=== PATIENT | male | born 1950 | race Caucasian/White ===

== ENCOUNTER 2020-03-27 06:01 | Emergency (ER) | payer OTHER ==
--- OUTSIDE RECORDS SUMMARY | 2020-03-27 06:04 | XMS REPORT | Clinical Summary ---
:1950 Author Organization [facility] Address [address] [place] [address] Care Team Providers Name Role Phone Chhaya Mckinley NP Primary Care Provider Allergies Active Allergy Reactions Severity Noted Date Comments Enoxaparin Rash Low 06/08/2016 Slight rashes o n the stomach for prolonged use GENERIC LOVENOX GIVES PATIENT BLISTERS AND RASHES Metformin Rash Low 06/08/2016 Medications Medication Sig Dispensed Refills Start End Date Status Date warfarin Take 2.5 mg by 0 Activ e (COUMADIN) 5 MG mouth every tablet evening. aspirin 81 mg Chew 81 mg 0 Activ e chewable tablet daily. PATIENT TOOK HIS ASPIRIN YESTERDAY INSTRUCTED BY HIS [employer] lisinopril Take 5 mg by 0 Active (PRINIVIL,ZESTRIL) mouth nightly. 5 mg tablet pantoprazole Take 40 mg by 0 Act rudy (PROTONIX) 40 MG mouth daily. EC tablet tamsulosin Take 0.4 mg by 0 Acti ve (FLOMAX) 0.4 mg mouth daily with capsule dinner. pantoprazole TAKE ONE TABLET 30 tablet 3 A ctive (PROTONIX) 40 MG BY MOUTH ONE 9 EC tablet TIME DAILY cyanocobalamin, Place 1,000 mcg 30 each 11 06/17/20 Active vitamin B-12, under the tongue 9 20 (VITAMIN B-12) daily. 1,000 mcg tablet, sublingualIndicati ons: S/P bariatric surgery, Intestinal malabsorption, unspecified type, Vitamin deficiency metoprolol TAKE ONE TABLET 30 tablet 0 Act rudy succinate XL BY MOUTH ONE 0 (TOPROL-XL) 25 mg TIME DAILY 24 hr tablet cyanocobalamin Take 1 tablet 30 tablet 11 06/06/20 E xpired (cyanocobalamin) (1,000 mcg 8 19 1000 MCG total) by mouth tabletIndications: daily. Class 3 severe obesity due to excess calories with serious comorbidity and body mass index (BMI) of 40.0 to 44.9 in adult ([facility]), Essential hypertension, Type 2 diabetes mellitus with complication, with long-term current use of insulin ([facility]), Coronary artery disease involving [place] heart with angina pectoris, unspecified vessel or lesion type ([facility]), Post-operative state, Bariatric surgery status, Intestinal malabsorption, unspecified type pantoprazole Take 1 tablet 30 tablet 4 05/26/20 Dis continued (PROTONIX) 40 MG (40 mg total) by 9 19 (Reorder) EC tablet mouth daily for 30 days. metoprolol TAKE ONE TABLET 30 tablet 0 04/21/20 Dis continued succinate XL BY MOUTH ONE 9 19 (Reo rder) (TOPROL-XL) 25 mg TIME DAILY 24 hr tablet clopidogrel TAKE ONE TABLET 30 tablet 0 04/23/20 Di scontinued (PLAVIX) 75 mg BY MOUTH ONE 9 19 (R eorder) tablet TIME DAILY metoprolol TAKE ONE TABLET 30 tablet 0 04/22/20 Dis continued succinate XL BY MOUTH ONE 9 19 (TOPROL-XL) 25 mg TIME DAILY 24 hr tablet clopidogrel TAKE ONE TABLET 30 tablet 0 05/18/20 Di scontinued (PLAVIX) 75 mg BY MOUTH ONE 9 19 (R eorder) tablet TIME DAILY metoprolol TAKE ONE TABLET 30 tablet 0 06/16/20 Dis continued succinate XL BY MOUTH ONE 9 19 (Reo rder) (TOPROL-XL) 25 mg TIME DAILY 24 hr tablet clopidogrel TAKE ONE TABLET 30 tablet 0 06/16/20 Di scontinued (PLAVIX) 75 mg BY MOUTH ONE 9 19 (R eorder) tablet TIME DAILY metoprolol TAKE ONE TABLET 30 tablet 0 07/15/19 Dis continued succinate XL BY MOUTH ONE 9 20 (TOPROL-XL) 25 mg TIME DAILY 24 hr tablet clopidogrel TAKE ONE TABLET 30 tablet 0 07/15/19 Di scontinued (PLAVIX) 75 mg BY MOUTH ONE 9 20 tablet TIME DAILY metoprolol TAKE ONE TABLET 30 tablet 0 08/15/19 Dis continued succinate XL BY MOUTH ONE 0 20 (TOPROL-XL) 25 mg TIME DAILY 24 hr tablet clopidogrel TAKE ONE TABLET 30 tablet 0 08/21/19 Di scontinued (PLAVIX) 75 mg BY MOUTH ONE 0 20 tablet TIME DAILY metoprolol TAKE ONE TABLET 30 tablet 0 09/15/19 Dis continued succinate XL BY MOUTH ONE 0 20 (TOPROL-XL) 25 mg TIME DAILY 24 hr tablet clopidogreL TAKE ONE TABLET 30 tablet 0 01/15/20 Di scontinued (PLAVIX) 75 mg BY MOUTH ONE 0 20 tablet TIME DAILY metoprolol TAKE ONE TABLET 30 tablet 0 09/16/19 Dis continued succinate XL BY MOUTH ONE 0 20 (TOPROL-XL) 25 mg TIME DAILY 24 hr tablet metoprolol TAKE ONE TABLET 30 tablet 0 10/13/19 Dis continued succinate XL BY MOUTH ONE 0 20 (TOPROL-XL) 25 mg TIME DAILY 24 hr tablet metoprolol TAKE ONE TABLET 30 tablet 0 11/16/19 Dis continued succinate XL BY MOUTH ONE 0 20 (TOPROL-XL) 25 mg TIME DAILY 24 hr tablet metoprolol TAKE ONE TABLET 30 tablet 0 12/14/19 Dis continued succinate XL BY MOUTH ONE 0 20 (TOPROL-XL) 25 mg TIME DAILY 24 hr tablet metoprolol TAKE ONE TABLET 30 tablet 0 01/08/20 Dis continued succinate XL BY MOUTH ONE 0 20 (TOPROL-XL) 25 mg TIME DAILY 24 hr tablet metoprolol TAKE ONE TABLET 30 tablet 0 02/03/20 Dis continued succinate XL BY MOUTH ONE 0 20 (TOPROL-XL) 25 mg TIME DAILY 24 hr tablet metoprolol TAKE ONE TABLET 30 tablet 0 02/27/20 Dis continued succinate XL BY MOUTH ONE 0 20 (TOPROL-XL) 25 mg TIME DAILY 24 hr tablet metoprolol TAKE ONE TABLET 30 tablet 0 03/26/20 Dis continued succinate XL BY MOUTH ONE 0 20 (TOPROL-XL) 25 mg TIME DAILY 24 hr tablet Active Problems Problem Noted Date Primary osteoarthritis of right hip 10/16/2018 Morbid (severe) obesity due to excess calories 018 Type 2 diabetes mellitus without complication, without long-term current 12/11/2017 use of insulin Essential hypertension 12/11/2017 HLD (hyperlipidemia) 12/11/2017 Thrush of mouth and esophagus 02/25/2017 ELIDIA (acute kidney injury) 02/25/2017 Non-traumatic rhabdomyolysis 02/25/2017 Diabetic hyperosmolar non-ketotic state 02/24/2017 History of myocardial infarction 12/07/2016 Coronary artery disease involving [place] coronary samantha ry of [place] heart 12/07/2016 without angina pectoris Follow up 12/07/2016 Factor V deficiency 06/08/2016 Encounters Date Type Specialty Care Team Description 03/26/2020 Refill Cardiology Stephan Easton MD 03/12/2020 Travel 02/27/2020 Refill Cardiology Stephan Easton MD 02/03/2020 Refill Cardiology Stephan Easton MD 01/15/2020 Office Visit Cardiology Stephan Easton Essential hyper tension (Primary Dx); MD Jaime Type 2 diabetes mellitus without complication, without long-term current use of insulin (HCC); Factor V defici ency (HCC); Coronary artery disease involving [place] coronary artery of [place] heart without angina pectoris 01/15/2020 Transcribe Orders Procedural Stephan Easton Coronary a rtery Cardiology MD Jaime disease involvi ng [place] coronary artery of [place] heart without angina pectoris (Prima ry Dx) 01/15/2020 Travel 01/08/2020 Refill Cardiology Stephan Easton MD 12/15/2019 Hospital Encounter Radiology Abraham Jones MD of right hip 12/15/2019 Travel 12/14/2019 Refill Cardiology Stephan Easton MD 12/13/2019 Refill General Surgery Natalie Lopez PA 12/10/2019 Office Visit Orthopedic Surgery Abraham Jones MD of right hip (P rimary Dx) 12/10/2019 Travel 12/05/2019 Travel 11/16/2019 Refill Cardiology Stephan Easton MD 10/13/2019 Refill Cardiology Stephan Easton MD 09/16/2019 Refill Cardiology Karen Eastonron Med Refkunal Sandoval MD 09/15/2019 Refill Cardiology Stephan Easton Med Refkunal Sandoval MD 08/20/2019 Refill Cardiology Stephan [place]aton Med Poli Sandoval MD 08/13/2019 Refill Cardiology Stephan Eatson Med Refkunal Sandoval MD 07/15/2019 Office Visit General Surgery Guillermo, Jose, Weight loss (Primary Dx); Essential hypertension; Natalie Lopez S/P bariatric s urgery Jose PA 07/15/2019 Refill Cardiology Stephan Easton Med Refkunal Sandoval MD 07/10/2019 Orders Only General Surgery Feliciano, Diabetic hyp erosmolar non- ketotic state (HCC) (Primary Dx); RICARDO Guadarrama Morbid (severe) obesity due to excess calories (HCC); Hyperlipidemia, unspecified hyperlipidemia type; S/P bariatric s urgery; B12 deficiency due to diet 06/18/2019 Orders Only General Surgery Lupe, Daniela, S/P bariatri c surgery (Primary Dx); [employer]ING [employer] Intestinal sekou bsorption, unspecified type; Vitamin deficie ncy 06/18/2019 Orders Only General Surgery Lupe, Daniela, Weight loss (Primary Dx); [employer] Essential hyper tension; S/P bariatric s urgery; Other hyperlipi demia; Type 2 diabetes mellitus without complication, without long-term current use of insulin (HCC); Coronary artery disease involving [place] coronary artery of [place] heart without angina pectoris; Intestinal sekou bsorption, unspecified type; Multiple vitami n deficiency 06/16/2019 Refill Cardiology Karen Eastonron Med Refkunal Sandoval MD 05/26/2019 Refill General Surgery Natalie Lopez PA 05/18/2019 Refill Cardiology Stephan Easton Med Poli Sandoval MD 04/23/2019 Refill Cardiology Stephan Easton Med Poli Sandoval MD 04/22/2019 Office Visit Cardiology Stephan Easton Factor V defici ency (HCC) (Primary Dx); MD Jaime History of myoc ardial infarction; Hyperlipidemia, unspecified hyperlipidemia type; Type 2 diabetes mellitus without complication, without long-term current use of insulin (HCC); Coronary artery disease involving [place] coronary artery of [place] heart without angina pectoris; Essential hyper tension 04/21/2019 Refill Cardiology Stephan Easton Med Poli Sandoval MD after 03/27/2019 Family History Medical History Relation Name Comments Diabetes Father Relation Name Status Comments Father Mother 98 Alive Social History Tobacco Use Types Packs/Day Years Used Date Former Smoker Cigarettes 1 50 Quit: 2016 Smokeless Tobacco: Never Used Alcohol Use Drinks/Week oz/Week Comments No Alcohol Habits Answer Date Recorded How often do you have a drink containing alcohol? Never 06/06/2018 How many drinks containing alcohol do you have on a typical Not asked day when you are drinking? How often do you have six or more drinks on one occasion? No t asked Sex Assigned at Date Recorded Not on file Job Start Date Occupation Industry Not on file Not on file Not on file Travel History Travel Start Travel End No recent travel history available. Last Filed Vital Signs Vital Sign Reading Time Taken Comments Blood Pressure 124/70 01/15/2020 7:01 AM CDT Pulse 56 07/15/2019 9:06 AM DRUG AND ALCOHOL TREATMENT SPECIALIST Temperature 36.5 C (97.7 F) 07/15/2019 9:06 AM DRUG AND ALCOHOL TREATMENT SPECIALIST Respiratory Rate 16 07/15/2019 9:06 AM DRUG AND ALCOHOL TREATMENT SPECIALIST Oxygen Saturation 97% 07/15/2019 9:06 AM DRUG AND ALCOHOL TREATMENT SPECIALIST Inhaled Oxygen Concentration - - Weight 78 kg (172 lb) 01/15/2020 7:01 AM CDT Height 170.2 cm (5' 7") 01/15/2020 7:01 AM CDT Body Mass Index 26.94 01/15/2020 7:01 AM CDT Plan of Treatment Date Type Specialty Care Team Description 07/20/2020 Appointment Procedural Cardiology 07/20/2020 Appointment Procedural Cardiology 07/20/2020 [place] [id number] [facility] [address], [address] [place] [phone] Health Maintenance Due Date Last Done Comments DIABETIC RETINAL EYE EXAM 1950 DIABETIC FOOT EXAM 1958 COLONOSCOPY SCREENING 1998 SHINGLES VACCINES (#1) 1998 65+ PNEUMOCOCCAL VACCINE (1 of 2 - PCV13) 2013 INFLUENZA VACCINE 03/09/2020 Implants Implanted Type Area Statistical Typist Device Shelf Model / Identifier Expiration Serial / Date Lot Drain Wnd Chnl 19fr 4in Rnd Hbls Fl-Flut W/ 4in Tr ocar - [id number] Surgical N/A: N/A [employer] 2231 / Implanted: 06/17/2018 at [facility] (Quantity not on file) Imp lants; PARAS & / Expanders; PARAS Extenders; Surgical Wires Procedures Procedure Name Priority Date/Time Associated Diagnosis Comme nts ECG 12-LEAD Routine 01/15/2020 6:10 Essential hyper tension Results for this AM CDT Type 2 diabetes procedure ar e in mellitus without the results complication, without sectio n. long-term current use of insulin (HCC) Factor V deficiency (HCC) Coronary artery disease involving [place] coronary artery of [place] heart without angina pectoris FL FLUOROSCOPY GUIDED Routine 12/15/2019 11:00 Primary osteoar thritis Results for this NEEDLE PLACEMENT AM CDT of right hip procedure a re in the results section. XR PELVIS 1 OR 2 VW Routine 12/10/2019 2:12 Primary osteoarth ritis Results for this PM CDT of right hip procedure are i n the results section. ESTIMATED GFR Routine 07/03/2019 9:28 Results fo r this AM DRUG AND ALCOHOL TREATMENT SPECIALIST procedure are i n the results section. ZINC LEVEL, SERUM Routine 07/03/2019 9:28 Weight loss Results for this AM DRUG AND ALCOHOL TREATMENT SPECIALIST Essential hypert ension procedure are in S/P bariatric balbuena rgery the results Other hyperlipid emia section. Type 2 diabetes mellitus without complication, without long-term current use of insulin (HCC) Coronary artery disease involving [place] coronary artery of [place] heart without angina pectoris Intestinal malabsorption, unspecified type Multiple vitamin deficiency T3 Routine 07/03/2019 9:28 Weight loss Results for this AM DRUG AND ALCOHOL TREATMENT SPECIALIST Essential hypert ension procedure are in S/P bariatric balbuena rgery the results Other hyperlipid emia section. Type 2 diabetes mellitus without complication, without long-term current use of insulin (HCC) Coronary artery disease involving [place] coronary artery of [place] heart without angina pectoris Intestinal malabsorption, unspecified type Multiple vitamin deficiency COMPREHENSIVE Routine 07/03/2019 9:28 Weight loss Results for this METABOLIC PANEL AM DRUG AND ALCOHOL TREATMENT SPECIALIST Essential hypert ension procedure are in S/P bariatric balbuena rgery the results Other hyperlipid emia section. Type 2 diabetes mellitus without complication, without long-term current use of insulin (HCC) Coronary artery disease involving [place] coronary artery of [place] heart without angina pectoris Intestinal malabsorption, unspecified type Multiple vitamin deficiency LIPID PANEL Routine 07/03/2019 9:28 Weight loss Results for this AM DRUG AND ALCOHOL TREATMENT SPECIALIST Essential hypert ension procedure are in S/P bariatric balbuena rgery the results Other hyperlipid emia section. Type 2 diabetes mellitus without complication, without long-term current use of insulin (HCC) Coronary artery disease involving [place] coronary artery of [place] heart without angina pectoris Intestinal malabsorption, unspecified type Multiple vitamin deficiency TOTAL IRON BINDING Routine 07/03/2019 9:28 Weight loss Results for this CAPACITY AM DRUG AND ALCOHOL TREATMENT SPECIALIST Essential hypert ension procedure are in S/P bariatric balbuena rgery the results Other hyperlipid emia section. Type 2 diabetes mellitus without complication, without long-term current use of insulin (HCC) Coronary artery disease involving [place] coronary artery of [place] heart without angina pectoris Intestinal malabsorption, unspecified type Multiple vitamin deficiency T4, FREE Routine 07/03/2019 9:28 Weight loss Results for this AM DRUG AND ALCOHOL TREATMENT SPECIALIST Essential hypert ension procedure are in S/P bariatric balbuena rgery the results Other hyperlipid emia section. Type 2 diabetes mellitus without complication, without long-term current use of insulin (HCC) Coronary artery disease involving [place] coronary artery of [place] heart without angina pectoris Intestinal malabsorption, unspecified type Multiple vitamin deficiency THYROID STIMULATING Routine 07/03/2019 9:28 Weight loss Results for this HORMONE AM DRUG AND ALCOHOL TREATMENT SPECIALIST Essential hypert ension procedure are in S/P bariatric balbuena rgery the results Other hyperlipid emia section. Type 2 diabetes mellitus without complication, without long-term current use of insulin (HCC) Coronary artery disease involving [place] coronary artery of [place] heart without angina pectoris Intestinal malabsorption, unspecified type Multiple vitamin deficiency HEMOGLOBIN A1C Routine 07/03/2019 9:28 Weight loss Results for this AM DRUG AND ALCOHOL TREATMENT SPECIALIST Essential hypert ension procedure are in S/P bariatric balbuena rgery the results Other hyperlipid emia section. Type 2 diabetes mellitus without complication, without long-term current use of insulin (HCC) Coronary artery disease involving [place] coronary artery of [place] heart without angina pectoris Intestinal malabsorption, unspecified type Multiple vitamin deficiency PARATHYROID HORMONE Routine 07/03/2019 9:28 Weight loss Results for this AM DRUG AND ALCOHOL TREATMENT SPECIALIST Essential hypert ension procedure are in S/P bariatric balbuena rgery the results Other hyperlipid emia section. Type 2 diabetes mellitus without complication, without long-term current use of insulin (HCC) Coronary artery disease involving [place] coronary artery of [place] heart without angina pectoris Intestinal malabsorption, unspecified type Multiple vitamin deficiency HC COMPLETE BLD COUNT Routine 07/03/2019 9:28 Weight lo ss Results for this W/AUTO DIFF AM DRUG AND ALCOHOL TREATMENT SPECIALIST Essential hypert ension procedure are in S/P bariatric balbuena rgery the results Other hyperlipid emia section. Type 2 diabetes mellitus without complication, without long-term current use of insulin (HCC) Coronary artery disease involving [place] coronary artery of [place] heart without angina pectoris Intestinal malabsorption, unspecified type Multiple vitamin deficiency VITAMIN A LEVEL, Routine 07/03/2019 9:28 Weight loss Results for this PLASMA OR SERUM AM DRUG AND ALCOHOL TREATMENT SPECIALIST Essential hypert ension procedure are in S/P bariatric balbuena rgery the results Other hyperlipid emia section. Type 2 diabetes mellitus without complication, without long-term current use of insulin (HCC) Coronary artery disease involving [place] coronary artery of [place] heart without angina pectoris Intestinal malabsorption, unspecified type Multiple vitamin deficiency VITAMIN B12 LEVEL Routine 07/03/2019 9:28 Weight loss Results for this AM DRUG AND ALCOHOL TREATMENT SPECIALIST Essential hypert ension procedure are in S/P bariatric balbuena rgery the results Other hyperlipid emia section. Type 2 diabetes mellitus without complication, without long-term current use of insulin (HCC) Coronary artery disease involving [place] coronary artery of [place] heart without angina pectoris Intestinal malabsorption, unspecified type Multiple vitamin deficiency VITAMIN D 25 HYDROXY Routine 07/03/2019 9:28 Weight los s Results for this LEVEL AM DRUG AND ALCOHOL TREATMENT SPECIALIST Essential hypert ension procedure are in S/P bariatric balbuena rgery the results Other hyperlipid emia section. Type 2 diabetes mellitus without complication, without long-term current use of insulin (HCC) Coronary artery disease involving [place] coronary artery of [place] heart without angina pectoris Intestinal malabsorption, unspecified type Multiple vitamin deficiency COPPER LEVEL, SERUM Routine 07/03/2019 9:28 Weight loss Results for this AM DRUG AND ALCOHOL TREATMENT SPECIALIST Essential hypert ension procedure are in S/P bariatric balbuena rgery the results Other hyperlipid emia section. Type 2 diabetes mellitus without complication, without long-term current use of insulin (HCC) Coronary artery disease involving [place] coronary artery of [place] heart without angina pectoris Intestinal malabsorption, unspecified type Multiple vitamin deficiency FOLATE LEVEL Routine 07/03/2019 9:28 Weight loss Results for this AM DRUG AND ALCOHOL TREATMENT SPECIALIST Essential hypert ension procedure are in S/P bariatric balbuena rgery the results Other hyperlipid emia section. Type 2 diabetes mellitus without complication, without long-term current use of insulin (HCC) Coronary artery disease involving [place] coronary artery of [place] heart without angina pectoris Intestinal malabsorption, unspecified type Multiple vitamin deficiency FERRITIN LEVEL Routine 07/03/2019 9:28 Weight loss Results for this AM DRUG AND ALCOHOL TREATMENT SPECIALIST Essential hypert ension procedure are in S/P bariatric balbuena rgery the results Other hyperlipid emia section. Type 2 diabetes mellitus without complication, without long-term current use of insulin (HCC) Coronary artery disease involving [place] coronary artery of [place] heart without angina pectoris Intestinal malabsorption, unspecified type Multiple vitamin deficiency VITAMIN B1 LEVEL, Routine 07/03/2019 9:28 Weight loss Results for this WHOLE BLOOD AM DRUG AND ALCOHOL TREATMENT SPECIALIST Essential hypert ension procedure are in S/P bariatric balbuena rgery the results Other hyperlipid emia section. Type 2 diabetes mellitus without complication, without long-term current use of insulin (HCC) Coronary artery disease involving [place] coronary artery of [place] heart without angina pectoris Intestinal malabsorption, unspecified type Multiple vitamin deficiency NM MYOCARDIAL Routine 04/22/2019 1:19 Essential hyper tension Results for this PERFUSION STRESS REST PM CDT Factor V deficiency procedure are in 1 DAY ([facility]) the results Coronary artery section. disease involving [place] coronary artery of [place] heart without angina pectoris Hyperlipidemia, unspecified hyperlipidemia type CV STRESS TEST Routine 04/22/2019 1:19 Essential hyper tension Results for this NUCLEAR CARDIO PM CDT Factor V deficiency proced ure are in ([facility]) the results Coronary artery section. disease involving [place] coronary artery of [place] heart without angina pectoris Hyperlipidemia, unspecified hyperlipidemia type RETICULOCYTE COUNT Routine 04/22/2019 11:32 Hereditary coagula tion Results for this AM CDT factor deficiency procedure are in ([facility]) the results section. FERRITIN LEVEL Routine 04/22/2019 11:32 Hereditary coagulation Results for this AM CDT factor deficiency procedure are in ([facility]) the results section. FOLATE RBC (GROUP Routine 04/22/2019 11:32 Hereditary coagulat ion Results for this TEST) AM CDT factor deficiency procedure are in ([facility]) the results section. VITAMIN B12 LEVEL Routine 04/22/2019 11:32 Hereditary coagulat ion Results for this AM CDT factor deficiency procedure are in ([facility]) the results section. LDH Routine 04/22/2019 11:32 Hereditary coagulation R esults for this AM CDT factor deficiency procedure are in ([facility]) the results section. TTE COMPLETE, WO Routine 04/22/2019 10:32 Essential hype rtension Results for this CONTRAST, W DOPPLER AM CDT Factor V deficiency p rocedure are in ([address]) ([facility]) the results Coronary artery section. disease involving [place] coronary artery of [place] heart without angina pectoris Hyperlipidemia, unspecified hyperlipidemia type after 03/27/2019 Results ECG 12 lead (01/15/2020 6:10 AM CDT) Pathologist Sig nature Ventricular rate 54 [facility] Atrial rate 54 [facility] MA interval 202 [facility] QRSD interval 94 [facility] QT interval 466 [facility] QTC interval 441 [facility] P axis 1 47 [facility] QRS axis 1 50 [facility] T wave axis 6 [facility] EKG impression Sinus [facility] bradycardia-Otherwise normal ECG-In automated comparison with ECG of 16-JAN-2019 06:24,-No significant change was found- Specimen Narrative Performed At This result has an attachment that is no t available. Performing Organization Address City/State/Zipcode Phone Number [facility] [address] [place] [address] [place] Fluoroscopy Guided Needle Placement (12/15/2019 11:00 AM CDT) Specimen Narrative Performed At EXAMINATION: [place] FLUOROSCOPY GUIDED NEE DLE PLACEMENT RADIANT CLINICAL HISTORY: M16.11 Unilateral primary osteoart hritis of the right hip COMPARISON: None. ANESTHESIA: Lidocaine local. TOTAL DOSE: 28.3 mGy ref air Kerma FINDINGS: Patient was placed in supine position. Ski n was sterilely prepped and draped. Lidocaine was infiltrated into the soft tissues for local anesthesia. A 22-gauge needle was advanced into the right hip join t under fluoroscopy and 80 mg of DepoMedrol and 8 cc of 0.25% Bupivacaine were infused. Patient tolerated the procedure well with no immediate complication and left the room in stable condition. ESTIMATED BLOOD LOSS: 0 cc. IMPRESSION: Technically successful fluoroscopic guided therapeutic right hip joint injection. Procedure Note Interface, Radiology Results Incoming - 12/15/2019 12:37 PM CDT EXAMINATION: [place] FLUOROSCOPY GUIDED NEEDLE PLACEMENT CLINICAL HISTORY: M16.11 Unilateral michael ok osteoarthritis of the right hip COMPARISON: None. ANESTHESIA: Lidocaine local. TOTAL DOSE: 28.3 mGy ref air Kerma FINDINGS: Patient was placed in supine position. Skin was sterilely prepped and draped. Lidocaine was infiltrated into the soft tissues for local anesthesia. A 22-gauge needle was advanced into the right hip joint under fluoroscopy and 80 mg of DepoMedrol and 8 cc of 0.25% Bupivacaine were infused. Patient tolerated the procedure well wit h no immediate complication and left the room in stable condition. ESTIMATED BLOOD LOSS: 0 cc. IMPRESSION: Technically successful fluor oscopic guided therapeutic right hip joint injection. Performing Organization Address [facility] Phone Number [facility] [address] [place] [address] XR Pelvis 1 Or 2 Vw (12/10/2019 2:12 PM CDT) Specimen Narrative Performed At This result has an attachment that is no t available. 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 There is a large cam lesion. Performing Organization Address [facility] Phone Number [facility] [address] [place] [address] Estimated GFR (07/03/2019 9:28 AM DRUG AND ALCOHOL TREATMENT SPECIALIST) Estimated GFR 89 mL/min/1.73 [facility] Comment: [address] Catergory Units Interpretation HOS PITAL G1 >=90 Normal or high G2 60-89 Mildly decreased G3a 45-59 Mildly to moderately decreas ed G3b 30-44 Moderately to severely decre ased G4 15-29 Severely decreased G5 <15 Kidney failure The eGFR was calculated using the Chronic Kidney Disea se Epidemiology Collaboration (CKD-EPI) equation. Interpretation is based on recommendations of the National Kidney Foundation-Kidney Disease Outcomes Shreyas lity Initiative (NKF-KDOQI) published in 2014. Specimen Plasma specimen Performing Organization Address [facility]/Zipcode Phone Number [facility] DEPARTMENT OF PATHOLOGY [address] [facility] [place] [address] AND GENOMIC MEDICINE [facility] [address] [facility] X [address] [facility] Total iron binding capacity (07/03/2019 9:28 AM DRUG AND ALCOHOL TREATMENT SPECIALIST) Pathologist Sig nature Iron level 147 59 - 158 ug/dL [facility] Iron binding capacity 266 260 - 460 ug/dL [facility] % Saturation 55.3 (H) 20.0 - 40.0 % [facility] Specimen Plasma specimen Performing Organization Address City/[facility]/Zipcode Phone Number [facility] DEPARTMENT OF PATHOLOGY [address] [facility] X [address] AND GENOMIC MEDICINE [facility] [address] [facility] X [address] [facility] Copper level, serum (07/03/2019 9:28 AM DRUG AND ALCOHOL TREATMENT SPECIALIST) Copper 81.0 70.0 - 140.0 [facility] Comment: ug/dL INTERPRETIVE INFORMATION: Copper, Serum or Plasma Elevated results may be due to skin or collection-rela aguila contamination, including the use of a noncertified met al-free collection/transport tube. If contamination concerns e xist due to elevated levels of serum/plasma copper, confirmation w ith a second specimen collected in a certified metal-free tube is r ecommended. Serum copper may be elevated with infection, inflammat ion, stress, and copper supplementation. In females, elevated coppe r may also be caused by oral contraceptives and (concen trations may be elevated up to 3 times normal during the third trim wolf). Test developed and characteristics determined by [facility]. See Compliance Statement B: [facility]/ CS Performed by [facility], [address] [place] [id number] [email or web address], Champ Perry MD, Lab. Director Specimen Blood Performing Organization Address [facility]/Zipcode Phone Number [facility] [address] [place] [address] [facility] [address] [place] [address] Vitamin B1 level, whole blood (07/03/2019 9:28 AM DRUG AND ALCOHOL TREATMENT SPECIALIST) Vitamin B1 126 70 - 180 HM [facility] Comment: nmol/L INTERPRETIVE INFORMATION: Vitamin B1, Whole Blood This assay measures the concentration of thiamine diph osphate (TDP), the primary active form of vitamin B1. Approxim ately 90 percent of vitamin B1 present in whole blood is TDP. T hiamine and thiamine monophosphate, which comprise the remaining 1 0 percent, are not measured. Test developed and characteristics determined by [facility]. See Compliance Statement B: [facility]/ CS Performed by [facility], [address] [place] [address] [email or web address], Champ Perry MD, Lab. Director Specimen Plasma specimen Performing Organization Address [facility]/Zipcode Phone Number [facility] [address] [place] [address] [facility] [address] [place] [address] Zinc level, serum (07/03/2019 9:28 AM DRUG AND ALCOHOL TREATMENT SPECIALIST) Zinc 94.7 60.0 - 120.0 [facility] Comment: ug/dL INTERPRETIVE INFORMATION: Zinc, Serum or Plasma Elevated results may be due to skin or collection-rela aguila contamination, including the use of a noncertified met al-free collection/transport tube. If contamination concerns e xist due to elevated levels of serum/plasma zinc, confirmation wit h a second specimen collected in a certified metal-free tube is r ecommended. Circulating zinc concentrations are dependent on album in status and are depressed with malnutrition. Zinc may also b e lowered with infection, inflammation, stress, oral contracepti ves, and . Zinc may be elevated with zinc supplement ation or fasting. Elevated zinc concentrations may interfere with copper absorption. Test developed and characteristics determined by [facility]. See Compliance Statement B: [facility]/ CS Performed by [facility], [address] [place] [address] [email or web address], Champ Perry MD, Lab. Director Specimen Blood Performing Organization Address [facility]/Zipcode Phone Number [facility] [address] [place] [address] [facility] [address] [place] [address] Vitamin A level, plasma or serum (07/03/2019 9:28 AM DRUG AND ALCOHOL TREATMENT SPECIALIST) Vitamin A (retinol) 0.56 0.30 - 1.20 [facility] mg/L Retinyl palmitate 0.05 0.00 - 0.10 [facility] mg/L Vitamin A Normal [facility] interpretation Comment: Test developed and characteristics determined by [facility]. See Compliance Statement B: [facility]/ CS Performed by [facility], [address] [place] [id number] [email or web address], Champ Perry MD, Lab. Director Specimen Plasma specimen Performing Organization Address City/State/Zipcode Phone Number [facility] [address] [place] [address] [facility] [address] [place] [address] Vitamin D 25 hydroxy level (07/03/2019 9:28 AM DRUG AND ALCOHOL TREATMENT SPECIALIST) Vitamin D, 42.4 30.0 - 150.0 [facility] 25-hydroxy Comment: ng/mL HOSPITAL This assay reports the sum of 25-hydroxy vitamin D3 an d 25-hydroxy vitamin D2. Reference range: 0-17 years: Deficiency: less than 20ng/mL Optimum level: greater than or equal to 20 ng/mL. 18 years and older: Deficiency: less than 20ng/mL Insufficiency: 20-29 ng/mL Optimum Level: 30-80 ng/mL The assay reportable range is 3.4 155.9 ng/mL. Level s higher than 150 ng/mL may be associated with toxicity. If toxicity is clinically suspected and the reported r esult is >155.9 ng/mL,contact lab for alternative methods to obtain a definitive level. If separate quantitation of 25-hydroxy vitamin D3 and 25-hydroxy vitamin D2 is needed, please contact lab for alternative methods. Specimen Blood Performing Organization Address City/[facility]/Zipcode Phone Number [facility] DEPARTMENT OF PATHOLOGY AND [address] [place] [phone] GENOMIC MEDICINE [facility] [address] [place] [address] CBC with platelet and differential (07/03/2019 9:28 AM DRUG AND ALCOHOL TREATMENT SPECIALIST) [facility] WBC 4.9 4.5 - 11.0 k/uL [facility] RBC 4.01 (L) 4.40 - 6.00 [facility] m/uL [facility] HGB 13.8 (L) 14.0 - 18.0 [facility] g/dL [facility] HCT 40.4 (L) 41.0 - 51.0 % [facility] MCV 100.7 (H) 82.0 - 100.0 fL [facility] MCH 34.4 (H) 27.0 - 34.0 pg [facility] MCHC 34.2 31.0 - 37.0 [facility] g/dL [facility] RDW - SD 46.5 37.0 - 55.0 fL [facility] MPV 11.0 6.9 - 11.0 fL [facility] Platelet count 113 (L) 150 - 400 K/uL [facility] Nucleated RBC 0.00 /100 WBC [facility] Neutrophils 67.2 39.0 - 69.0 % [facility] Lymphocytes 25.1 25.0 - 45.0 % [facility] Monocytes 5.9 0.0 - 10.0 % [facility] Eosinophils 0.8 0.0 - 5.0 % [facility] Basophils 0.8 0.0 - 1.0 % [facility] Immature granulocytes 0.2 0.0 - 1.0 % [facility] Specimen Blood Performing Organization Address City/State/Zipcode Phone Number [facility] DEPARTMENT OF PATHOLOGY [address] [place] [address] T3 (07/03/2019 9:28 AM DRUG AND ALCOHOL TREATMENT SPECIALIST) Pathologist Sig nature T3 128 80 - 200 ng/dL [facility] Specimen Plasma specimen Performing Organization Address City/[facility]/Zipcode Phone Number [facility] DEPARTMENT OF PATHOLOGY AND [address] [place] [address] [address] [address] Thyroid stimulating hormone (07/03/2019 9:28 AM DRUG AND ALCOHOL TREATMENT SPECIALIST) Pathologist Sig nature TSH 1.91 0.27 - 4.20 uIU/mL [facility] Specimen Plasma specimen Performing Organization Address City/State/Zipcode Phone Number [facility] DEPARTMENT OF PATHOLOGY [address] [place] [address] X [address] T4, free (07/03/2019 9:28 AM DRUG AND ALCOHOL TREATMENT SPECIALIST) Pathologist Sig nature T4, free 1.0 0.9 - 1.7 ng/dL [facility] Specimen Plasma specimen Performing Organization Address City/[facility]/Zipcode Phone Number [facility] DEPARTMENT OF PATHOLOGY [address] [place] [address], X [address] AND [facility] [id number] [place] [address] [facility] Parathyroid hormone (07/03/2019 9:28 AM DRUG AND ALCOHOL TREATMENT SPECIALIST) Pathologist Sig nature PTH 33 15 - 65 pg/mL [facility] Specimen Blood Performing Organization Address City/[facility]/Zipcode Phone Number [facility] DEPARTMENT OF PATHOLOGY [address] [place] [address] X [phone] AND [facility] [id number] [place] [address] X [address] [facility] Hemoglobin A1c (07/03/2019 9:28 AM DRUG AND ALCOHOL TREATMENT SPECIALIST) Hemoglobin A1C 5.4 4.0 - 5.6 % [facility] Comment: [place] HbA1c cutoffs for diagnosing diabetes: HO SPITAL 4.0% - 5.6% = normal 5.7% - 6.4% = increased risk for diabetes (prediabetes )9 >=6.5% = diabetes9 Goals for glycemic control (ADA 2016) < 7.0% Target for non adults with diabetes. More or less stringent targets may be appropriate for individual patients. <7.5% Target for Children and adolescents with type 1 diabetes. Specimen Blood Performing Organization Address [facility] Phone Number [facility] DEPARTMENT OF PATHOLOGY [address] [place] [address], X [address] [place] [address] [facility] Folate level (07/03/2019 9:28 AM DRUG AND ALCOHOL TREATMENT SPECIALIST) Pathologist Sig [facility] Folate >20.0 4.8 - 24.2 ng/mL [facility] Specimen Serum Performing Organization Address City/[facility]/Zipcode Phone Number [facility] DEPARTMENT OF PATHOLOGY AND [address] [place] [address] [address] [address] Ferritin level (07/03/2019 9:28 AM DRUG AND ALCOHOL TREATMENT SPECIALIST)Only the most recent of2 resultswithin the time period is included. Pathologist Sig [facility] Ferritin level 118 30 - 400 ng/mL [facility] Specimen Plasma specimen Performing Organization Address City/[facility] Phone Number [facility] DEPARTMENT OF PATHOLOGY AND [address] [place], [place] [address] [facility] [address] [place] [address] Vitamin B12 level (07/03/2019 9:28 AM DRUG AND ALCOHOL TREATMENT SPECIALIST)Only the most recent of2 results within the time period is included. Vitamin B12 1,071 (H) 211 - 946 [facility] Comment: pg/mL HOSPITAL Significant overlap exists between normal and deficien cy states. However, most patients with deficiencies will have Ser um B12 <200 pg/mL. Specimen Serum Performing Organization Address City/State/Zipcode Phone Number [facility] DEPARTMENT OF PATHOLOGY AND [address] [place], [place] [address] [facility] [address] [place] [address] Lipid panel (07/03/2019 9:28 AM DRUG AND ALCOHOL TREATMENT SPECIALIST) Cholesterol 149 0 - 199 [place] mg/dL [facility] Triglycerides 87 0 - 149 [place] mg/dL [facility] HDL cholesterol 46 40 - 99,999 [place] mg/dL [facility] LDL cholesterol 105 (H) 0 - 99 mg/dL [facility] Lipid panel See below [place] interpretation Comment: [facility] Total Cholesterol (mg/dL) [facility] <200 Desirable 200-239 Borderline-high >=240 High Triglycerides (mg/dL) <150 Normal 150-199 Borderline-high 200-499 High >=500 Very high HDL Cholesterol (mg/dL) <40 Low (male) <50 Low (female) LDL Cholesterol (mg/dL) <100 Optimal 100-129 Near or above optimal 130-159 Borderline-high 160-189 High >=190 Very high Risk Catergories that modify LDL goals. Risk Catergories LDL goal (mg/d L) CHD and CHD risk equivalent <100 (10-year risk >20%) Multiple (2+) risk factors <130 (10-year risk =<20%) 0-1 risk factors <160 (<10-year risk) Defining levels of lipids in metabolic syndrome Triglycerides >=150 mg/dL HDL Cholesterol Men <40 mg /dL Women <50 mg/ dL Non-HDL cholesterol is a second target for therapy in persons with high triglycerides (>=200 mg/dL) Specimen Plasma specimen Performing Organization Address City/State/Zipcode Phone Number [facility] DEPARTMENT OF PATHOLOGY [address] [facility] X [address] AND GENOMIC [facility] [address] [place] [address] X [address] [facility] Comprehensive metabolic panel (07/03/2019 9:28 AM DRUG AND ALCOHOL TREATMENT SPECIALIST) Pathologist Sig nature Sodium 141 135 - 148 mEq/L [facility] Potassium 4.1 3.5 - 5.0 mEq/L [facility] Chloride 103 98 - 112 mEq/L [facility] CO2 26 24 - 31 mEq/L [facility] Anion gap 12@ANIO 7 - 15 mEq/L [facility] BUN 19 8 - 23 mg/dL [facility] Creatinine 0.82 0.70 - 1.20 [facility] mg/dL [facility] Glucose 105 (H) 65 - 99 mg/dL [facility] Calcium 9.8 8.8 - 10.2 mg/dL [facility] Protein 7.5 6.3 - 8.3 g/dL [facility] Albumin 4.3 3.5 - 5.0 g/dL [facility] A/G ratio 1.3 0.7 - 3.8 [facility] Alkaline phosphatase 72 40 - 129 U/L [facility] AST 17 10 - 50 U/L [facility] ALT 13 5 - 50 U/L [facility] Total bilirubin 0.6 0.2 - 1.2 mg/dL [facility] Specimen Plasma specimen Performing Organization Address City/State/Zipcode Phone Number [facility] DEPARTMENT OF PATHOLOGY [address] [facility] X [address] AND [facility] [address] [facility] X [address] [facility] Cv stress test (04/22/2019 1:19 PM CDT) Resting HR 46 [facility] Resting BP 128 [facility] Peak MET Achieved 1.0 [facility]USE Protocol Name [facility] MUSE Time in Exercise 00:01:00 [facility] MUSE Phase Max Systolic BP 136 [facility] Max Diastolic BP 74 [facility] Max Heart Rate 70 [facility] Max Predicted Heart 150 [facility] M[facility] Rate Target HR Formula (220 - Age)*100% [facility] MUSE Stress Test Waveform interpreted in [facility] MUSE Impression report associated with image study. No interpretation is provided as part of this Stress ECG report.--Electronically Signed By Rustam VALDERRAMA, Stephan Simon (2007), index editor Lyndsay Oglesby ([id number]) on 04/22/2019 9:12:45 AM Target HR 150.00 bpm [facility] MUSE Specimen Narrative Performed At This result has an attachment that is no t available. Performing Organization Address City/[facility] Phone Number [facility] MUSE [address] [place] [address] Nm myocardial perfusion (04/22/2019 1:19 PM CDT) Pathologist Sig nature Target HR 150.00 bpm [facility] Resting HR 46 BPM [facility] Resting BP 128/74 mmHg HM [facility] Percent HR 36.00 % HM [facility] Post Peak HR 54 bpm HM [facility] Post Peak BP 136/74 mmHg [facility] Specimen Narrative Performed At This result has an attachment that is no t available. Abnormal myocardial perfusion: [facility] There is a small defect that is moderate in severit y, located at the mid inferior and basal inferior segment(s) of the left andreea tricle. The defect is non-reversible (fixed). There is no artifact presen t. 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 Defect size = 5% Left ventricular global wall motion is mildly hypok inetic. All segments of left ventricle demonstrated normal wall thickness. LVEF = 39% This study result indicates a low risk of cardiac d eath, or nonfatal infarction, over the ensuing year. This study is in agreement with the prior study was performed on 12/11/2017. Performing Organization Address [facility] Phone Number [facility] [address] [place] [address] Reticulocyte count (04/22/2019 11:32 AM CDT) Pathologist Sig nature Retic %, auto 0.9 0.5 - 2.1 % [facility] Retic absolute, auto 0.0356 0.0220 - 0.1260 [facility] m/uL [facility] Specimen Blood Performing Organization Address City/[facility]/Zipcode Phone Number [facility] DEPARTMENT OF PATHOLOGY [address] [facility] [place] [address] AND [facility] [address] [facility] [place] [address] [facility] LDH (04/22/2019 11:32 AM CDT) Pathologist Sig [facility] LDH 128 87 - 225 U/L [facility] Specimen Plasma specimen Performing Organization Address City/State/Zipcode Phone Number [facility] DEPARTMENT OF PATHOLOGY [address] [facility] [place] [address] AND GENOMIC [facility] [id number] [place] [phone] [place] [address] Folate RBC (group test) (04/22/2019 11:32 AM CDT) Pathologist [facility] RBC folate 1,038 499 - 1,504 ng/mL [facility] ANA Specimen Blood Performing Organization Address City/[facility]/Zipcode Phone Number [facility] DEPARTMENT OF PATHOLOGY AND [address] [place] [address] [phone] [address] Echocardiogram complete w contrast and 3D if needed (04/22/2019 10:32 AM CDT) Pathologist Sig [facility] Ao Root Diameter 3.89 cm [facility] AoV Mean PG 3.92 mmHg [facility] AoV Peak PG 7.42 mmHg [facility] AoV Vmax 1.36 m/s [facility] AoV VTI 0.36 m [facility] BSA Oliva 2.02 m2 [facility] BSA 1.95 m2 [facility] IVS,d 1.05 cm [facility] IVS/LVPW,2D 0.98 HM [facility] Left Atrium Dimension Anterior 3.77 cm [facility] LV,d 5.08 cm [facility] LV EF,2D 64.59 % [facility] LV,s 3.59 cm [facility] LVOT Vmax 0.90 m/s [facility] LVOT VTI 0.22 m [facility] LVPWD,d 1.08 cm [facility] PV Mean Grad 1.60 mmHg [facility] PV Pk Grad 2.93 mmHg [facility] PV VMAX 0.86 m/s [facility] PV VTI 0.22 m [facility] RVSP (TR) 29.43 mmHg [facility] TR Vpeak 2.70 mm/s [facility] MV E A ratio 1.53 [facility] RA pressure 10.00 mmHg HM [facility] TR pk grad 19.43 mmHg HM [facility] PV Vmn 0.60 HM [facility] BMI 28.82 kg/m2 HM [facility] E wave decelartion time 350.91 msec HM [facility] MV Peak A Hao 0.43 m/s HM [facility] MV valve area p 1/2 method 2.16 cm2 HM [facility] MV stenosis pressure 1/2 time 101.76 ms HM [facility] AV LVOT peak gradient 3.24 mmHg HM [facility] RVSP 29.43 mmHg HM [facility] Ao Root Diameter 3.89 cm HM [facility] LV SYS VOL 54.23 ml HM [facility] LV TAYLOR VOL 122.72 ml HM [facility] LA area s A4C 27.54 cm2 HM [facility] LV SI Teich 2D 35.09 ml/m2 HM [facility] LV SV Teich 2D 68.48 ml HM [facility] LV Vol s Teich PSAX 54.23 ml HM [facility] BSA Haycock 2.01 m2 HM [facility] AoV Vmn 0.94 HM [facility] LV FS Teich 2D 29.25 HM [facility] MV AE ratio 0.65 HM [facility] LV FS Cube 2D 29.25 HM [facility] LVOT Vmn 0.62 HM [facility] Pt Size 170.18 HM [facility] Pt Wt 83.46 HM [facility] LA A_P score P 1.44 HM [facility] LVOT mean grad 1.75 mmHg HM [facility] LV SI Cube 2D 43.40 ml/m2 HM [facility] LV SV Cube 2D 84.70 ml HM [facility] LV vol d cube 2D 131.14 ml HM [facility] LV vol s cube 2D 46.44 ml HM [facility] MV Decel slope 1.87 m/s2 HM [facility] LA Vol MOD A4C 88.90 ml HM [facility] Velocity Ratio (V1/V2) 0.66 m/s HM [facility] EF 55.81 % HM [facility] LV Mass 203.00 (g) HM [facility] LA volume 81.00 cm3 HM [facility] TDI SEPTAL e' 1.2 HM [facility] LA Volume Index 41.54 mL/m2 HM [facility] LA Area d A4C 98 cm2 HM [facility] Mitral Valve E/E' 5.5 HM [facility] Specimen Narrative Performed At This result has an attachment that is no t available. Normal left ventricular size and function with an EF~ 55% to 60%. HM [facility] Normal right ventricular size and function. Structurally normal cardiac valves. Left atrial enlargement. Normal pericardium with no effusion. Grade 1 diastolic dysfunction. Performing Organization Address City/State/Zipcode Phone Number [facility] [address] [place] [address] after 03/27/2019 Insurance Payer Benefit Plan / Subscriber ID Effective Phone Address T ype Group Dates MEDICARE MEDICARE PART A xxxxxxxxxxx 2014-[place], [place] Medicare AND B ent COMMERCIAL MISC MISC COMMERCIAL xxxxxxxxxx 2018-[facility] Commercial ent Advance Directives For more information, please contact: [phone] Type Date Recorded Patient Speech Instructor Explanati on Advance Directives, Living 02/24/2017 10:36 AM Will and Medical Power of [employer] Advance Directives, Living 07/30/2018 8:57 AM PO A- 06/12/18 Will and Medical Power of [employer] Advance Directives, Living 07/30/2018 8:57 AM AD - 06/12/18 Will and Medical Power of [employer]
--- OUTSIDE RECORDS SUMMARY | 2020-03-27 06:05 | XMS REPORT | Continuity of Care Document ---
:1950 Author Organization [facility] t Address [address] [place] [address] Care Team Providers Name Role Phone Arlen OCHOA, Chhaya Primary Care Physician Jaime Easton MD Attending Clinician SHRUTHI Attending Clinician Unavailable Sarah Banks MD Attending Clinician Jose Carlson Attending Clinician Guillermo VALDERRAMA Attending Clinician Braden SILVA Attending Clinician Unavailable Lupe OSBORN Attending Clinician Payers Payer Name Policy Policy Number Effective Expiration Source Type Date Date MEDICAREMEDICARE PART xxxxxxxxxxx 2014 Pedro Luis eugenio Matos AND 00:00:00 [place] [id number] [facility] COMMERCIAL MISCMISC xxxxxxxxxx 2018 [facility]1 00:00:00 Met caraballo /07/2018-Nayeli cial Problems Condition Condition Condition Status Onset Resolution Last Treating Co mments Source Name Details Category Date Date Treatment Clinician Date Primary Primary Disease Active [place] osteoarthr osteoarthr 4-10 [facility] itis of itis of 00:00: st right hip right hip 00 Morbid Morbid Disease Active 2017-07 [place] (severe) (severe) 2-10 Method i obesity obesity 00:00: st due to due to 00 excess excess calories calories Type 2 Type 2 Disease Active [place] diabetes diabetes 6-05 [facility] i mellitus mellitus 00:00: st without without 00 complicati complicati on, on, without without long-term long-term current current use of use of insulin insulin Essential Essential Disease Active Madeline ston hypertensi hypertensi 6 [place] thodi on on 00:00: st 00 HLD HLD Disease Active Nino (hyperlipi ([facility]i 6 [facility] st 00 Thrush of Thrush of Disease Active Madeline ston mouth and mouth and 8-20 Meth nikolas esophagus esophagus 00:00: st 00 ELIDIA (acute ELIDIA (acute Disease Active [facility] kidney kidney 8-20 Method[facility] injury) injury) 00:00: st 00 Non-trauma Non-trauma Disease Active [facility] tic tic 8 [facility] rhabdomyol rhabdomyol 00:00: st ysis ysis 00 Diabetic Diabetic Disease Active [place] hyperosmol hyperosmol 8 [facility] st non-ketoti non-ketoti 00 c state c state History of History of Disease Active [facility] myocardial myocardial 6 [facility] infarction infarction 00:00: st 00 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 12-07 [facility] disease disease 00:00: st involving involving 00 [place] coronary coronary artery of artery of [place] heart heart without without angina angina pectoris pectoris Follow up Follow up Disease Active Madeline ston 12-07 [facility] 00:00: st 00 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 08-[facility] 00 Allergies, Adverse Reactions, Alerts Allergy Allergy Status Severity Reaction(s) Onset Inactive Treating Comm ents Source Name Type Date Date Clinician Enoxapar Propensi Active Rash 2015-07 Slight [place] in ty to 08-09 rashes on [facility] adverse 00:00: the st reaction 00 stomach s to for drug prolonged use GENERIC LOVENOX GIVES PATIENT BLISTERS AND RASHES Metformi Propensi Active Rash 2015-07 [place] ty to 08-09 [facility] adverse 00:00: st reaction 00 s to drug Family History Family Member Diagnosis Comments Start Date Stop Date Source Natural father Diabetes [facility] Social History Social Habit Start Date Stop Date Quantity Comments Source History of tobacco Current smoker Pedro Luis becker Amish use History [facility] Meth odist Alcohol Std Drinks History [facility] Meth odist Alcohol Binge Sex Assigned At [place] M ethodist Cigarettes smoked 2020-01-15 2020-01-15 Nino Jaramillo current (pack per 00:00:00 00:00:00 day) - Reported Cigarette 2020-01-15 2020-01-15 Nino De León ist pack-years 00:00:00 00:00:00 Alcohol intake 2020-01-15 2020-01-15 Current [place] Me thodist 00:00:00 00:00:00 non-drinker of alcohol (finding) History [facility] 2018-06-06 2018-06-06 1 [place] Meth odist Alcohol Frequency 00:00:00 00:00:00 Smoking Status Start Date Stop Date Source Former smoker 2020-01-15 00:00:00 2020-01-15 00:00:00 Nino Jaramillo Medications Ordered Filled Start Stop Current Ordering Indication Dosage Frequency Signature Comments Components Source Medication Medication Date Date Medication? Clinician (SIG) Name Name metoprolol 2019-0 Yes TAKE ONE Madeline ston succinate 9-18 TABLET BY Metho di XL 00:00: MOUTH ONE st (TOPROL-XL) 00 TIME DAILY 25 mg 24 hr tablet metoprolol 2019-0 2020- No TAKE ONE [place] succinate 8-21 09-18 TABLET BY Meth nikolas XL 00:00: 00:[address] (TOPROL-XL) 00 :00 TIME DAILY 25 mg 24 hr tablet metoprolol 2020-0 2020- No TAKE ONE [place] succinate 7-28 08-21 TABLET BY Meth nikolas XL 00:00: 00:[address] (TOPROL-XL) 00 :00 TIME DAILY 25 mg 24 hr tablet warfarin 2020-0 Yes 2.5mg QD Take 2.5 [place] (COUMADIN) 7-09 mg by Methodi 5 MG tablet 07:02: mouth st 39 every evening. aspirin 81 2020-0 Yes 81mg QD Chew 81 mg [place] mg chewable -09 daily. Method i tablet 07:02: PATIENT st 33 TOOK HIS ASPIRIN YESTERDAY INSTRUCTED BY HIS CARDIOLOGI ST lisinopril 2020-0 Yes 5mg QD Take 5 mg [place] (PRINIVIL,Z 7-09 by mouth Meth nikolas ESTRIL) 5 07:02: nightly. st mg tablet 33 pantoprazol 2019-0 Yes 40mg QD Take 40 mg One[place] e 7-09 by mouth Methodi (PROTONIX) 07:02: daily. st 40 MG EC 33 tablet tamsulosin 2019-0 Yes .4mg QD Take 0.4 Madeline ston (FLOMAX) 7-09 mg by [facility] 0.4 mg 07:02: mouth st capsule 33 daily with dinner. metoprolol 2019-2019- No TAKE ONE [place] succinate 7-02 -28 TABLET BY Meth nikolas XL 00:00: 00:[address] (TOPROL-XL) 00 :00 TIME DAILY 25 mg 24 hr tablet metoprolol 2019-2019- No TAKE ONE [place] succinate 6-01 12-02 TABLET BY Meth nikolas XL 00:00: 00:[address] (TOPROL-XL) 00 :00 TIME DAILY 25 mg 24 hr tablet metoprolol 2019-2019- No TAKE ONE [place] succinate 5-10 06-07 TABLET BY Meth nikolas XL 00:00: 00:[address] (TOPROL-XL) 00 :00 TIME DAILY 25 mg 24 hr tablet metoprolol 2019-2019- No TAKE ONE [place] succinate 4-06 05-10 TABLET BY Meth nikolas XL 00:00: 00:[address] (TOPROL-XL) 00 :00 TIME DAILY 25 mg 24 hr tablet metoprolol 2019-2019- No TAKE ONE [place] succinate 3-10 04-06 TABLET BY Meth nikolas XL 00:00: 00:[address] (TOPROL-XL) 00 :00 TIME DAILY 25 mg 24 hr tablet metoprolol 2019-2019- No TAKE ONE [place] succinate 3-09 03-10 TABLET BY Meth nikolas XL 00:00: 00:[address] (TOPROL-XL) 00 :00 TIME DAILY 25 mg 24 hr tablet clopidogreL 2019-0 2019- No TAKE ONE [place] (PLAVIX) 75 2-13 07-09 TABLET BY Me thodi mg tablet 00:00: 00:[address] 00 :00 TIME DAILY metoprolol 2019-0 2019- No TAKE ONE [place] succinate 2-07 03-09 TABLET BY Meth nikolas XL 00:00: 00:[address] (TOPROL-XL) 00 :00 TIME DAILY 25 mg 24 hr tablet clopidogrel 2019- No TAKE ONE [place] (PLAVIX) 75 1-07 02-13 TABLET BY Me thodi mg tablet 00:00: 00:[address] 00 :00 TIME DAILY metoprolol 2019- No TAKE ONE [place] succinate -07 -07 TABLET BY Meth nikolas XL 00:00: 00:[address] (TOPROL-XL) 00 :00 TIME DAILY 25 mg 24 hr tablet cyanocobala 2018-07- No Vitamin 1000ug QD [facility], 08-19- deficiency 1,000 mcg Met hodi vitamin 00:00: 23:[address] B-12, 00 :00 tongue (VITAMIN daily. B-12) 1,000 mcg tablet, sublingual metoprolol 2018-07- No TAKE ONE [place] succinate 08-17 TABLET BY Meth nikolas XL 00:00: 00:[address] (TOPROL-XL) 00 :00 TIME DAILY 25 mg 24 hr tablet clopidogrel 2018-07- No TAKE ONE [place] (PLAVIX) 75 2- TABLET BY Me thodi mg tablet 00:00: 00:[address] 00 :00 TIME DAILY pantoprazol 2018-07 Yes TAKE ONE [place] e 1-18 TABLET BY [facility] (PROTONIX) 00:00: MOUTH ONE st 40 MG EC 00 TIME DAILY tablet metoprolol 2018-07- No TAKE ONE [place] succinate 1-10 12-09 TABLET BY Meth nikolas XL 00:00: 00:[address] (TOPROL-XL) 00 :00 TIME DAILY 25 mg 24 hr tablet clopidogrel 2018-07- No TAKE ONE [place] (PLAVIX) 75 1-10 12-09 TABLET BY Me thodi mg tablet 00:00: 00:[address] 00 :00 TIME DAILY clopidogrel 2018-07- No TAKE ONE [place] (PLAVIX) 75 0-16 11-10 TABLET BY Me thodi mg tablet 00:00: 00:[address] 00 :00 TIME DAILY metoprolol 2018-07- No TAKE ONE [place] succinate 0-15 10-15 TABLET BY Meth nikolas XL 00:00: 00:[address] (TOPROL-XL) 00 :00 TIME DAILY 25 mg 24 hr tablet clopidogrel 2018- No TAKE ONE [place] (PLAVIX) 75 9-15 10-16 TABLET BY Me thodi mg tablet 00:00: 00:[address] 00 :00 TIME DAILY metoprolol 2018- No TAKE ONE [place] succinate 8-04 10-14 TABLET BY Meth nikolas XL 00:00: 00:[address] (TOPROL-XL) 00 :00 TIME DAILY 25 mg 24 hr tablet pantoprazol 2018- No 40mg QD Take 1 Madeline ston e 7-02 11-18 tablet (40 Methodi (PROTONIX) 00:00: 00:00 mg total) s t 40 MG EC 00 :00 by mouth tablet daily for 30 days. cyanocobala 2017-07- Intestinal 1000ug QD Take 1 One[place] min 08-0629 malabsorpti tablet Metho di (cyanocobal 00:00: 23:59 on, (1,[address] [place]) 1000 00 :00 unspecified total) by MCG tablet type mouth daily. Vital Signs Vital Name Observation Time Observation Value Comments Source Systolic blood 2020-01-15 07:01:00 124 mm[Hg] Karen Jaramillo pressure Diastolic blood 2020-01-15 07:01:00 70 mm[Hg] Nikolai on Amish pressure Body height 2020-01-15 07:01:00 170.2 cm Nino Jaramillo Body weight 2020-01-15 07:01:00 78.019 kg Nino Jaramillo BMI 2020-01-15 07:01:00 26.94 kg/m2 Nino Jaramillo Heart rate 2019-07-15 09:06:00 56 /min Nino Jaramillo Body temperature 2019-07-15 09:06:00 36.5 Vickie [place] Amish Respiratory rate 2019-07-15 09:06:00 16 /min [place] [facility] Oxygen saturation in 2019-07-15 09:06:00 97 /min Nino Jaramillo Arterial blood by Pulse oximetry Procedures Procedure Date / Time Performed Performing Clinician [facility] e ECG 12-LEAD 2020-01-15 06:10:30 Stephan Easton ethodist [place] FLUOROSCOPY GUIDED 2019-12-15 11:00:00 Abraham Banks NEEDLE PLACEMENT XR PELVIS 1 OR 2 2019-12-10 14:12:15 Abraham Banks VITAMIN B1 LEVEL, WHOLE 2019-07-03 09:28:00 GuillermoJose BLOOD FERRITIN LEVEL 2019-07-03 09:28:00 Guillermo Jose Fierro odist FOLATE LEVEL 2019-07-03 09:28:00 Guillermo, Jose Oneill Sri odgarcía COPPER LEVEL, SERUM 2019-07-03 09:28:00 Guillermo, Jose Nino Jaramillo VITAMIN D 25 HYDROXY 2019-07-03 09:28:00 Guillermo, Jose Nino Jaramillo LEVEL VITAMIN B12 LEVEL 2019-07-03 09:28:00 Guillermo, Jose Nino Milian thodist VITAMIN A LEVEL, PLASMA 2019-07-03 09:28:00 Guillermo, Jose Jaramillo OR SERUM HC COMPLETE BLD COUNT 2019-07-03 09:28:00 GuillermoJose elise n Amish W/AUTO DIFF PARATHYROID HORMONE 2019-07-03 09:28:00 Jose Li HEMOGLOBIN A1C 2019-07-03 09:28:00 Guillermo, Jose Oneill Sri odist THYROID STIMULATING 2019-07-03 09:28:00 Guillermo, Jose Nino Jaramillo HORMONE T4, FREE 2019-07-03 09:28:00 Guillermo, Jose Oneill Sri odgarcía TOTAL IRON BINDING 2019-07-03 09:28:00 Guillermo, Jose Nino M ethodist CAPACITY LIPID PANEL 2019-07-03 09:28:00 Guillermo Jose Oneill Sri odgarcía COMPREHENSIVE METABOLIC 2019-07-03 09:28:00 Jose Li Amish PANEL T3 2019-07-03 09:28:00 Guillermo, Jose Oneill Sri odist ZINC LEVEL, SERUM 2019-07-03 09:28:00 Guillermo, Jose Nino Milian thodist ESTIMATED GFR 2019-07-03 09:28:00 Guillermo, Jose Oneill Sri odgarcía CV STRESS TEST NUCLEAR 2019-04-22 13:19:17 Stephan Easton CARDIO NM MYOCARDIAL PERFUSION 2019-04-22 13:19:17 Stephan Easton STRESS REST 1 DAY LDH 2019-04-22 11:32:00 Qurashi, Milton One[facility] Meth odist VITAMIN B12 LEVEL 2019-04-22 11:32:00 Milton Alvarado Me thodist FOLATE RBC (GROUP TEST) 2019-04-22 11:32:00 Milton Alvarado Amish FERRITIN LEVEL 2019-04-22 11:32:00 Milton Alvarado Meth odist RETICULOCYTE COUNT 2019-04-22 11:32:00 Milton Alvarado M ethodist TTE COMPLETE, WO 2019-04-22 10:32:45 Stephan Easton [place] Amish CONTRAST, W DOPPLER ([id number]) Plan of Care Planned Activity Planned Date Details Comments Source Future Scheduled 2020-03-09 INFLUENZA VACCINE [place] [facility] Test 00:00:00 [code = INFLUENZA VACCINE] Future Scheduled 2013 65+ PNEUMOCOCCAL [place] [facility] Test 00:00:00 VACCINE (1 of 2 - PCV13) [code = 65+ PNEUMOCOCCAL VACCINE (1 of 2 - PCV13)] Future Scheduled 1998 COLONOSCOPY SCREENING [place] [facility] Test 00:00:00 [code = COLONOSCOPY SCREENING] Future Scheduled 1998 SHINGLES VACCINES (#1) [place] [facility] Test 00:00:00 [code = SHINGLES VACCINES (#1)] Future Scheduled 1958 DIABETIC FOOT EXAM [place] [facility] Test 00:00:00 [code = DIABETIC FOOT EXAM] Future Scheduled 1950 DIABETIC RETINAL EYE Madeline ston [facility] Test 00:00:00 EXAM [code = DIABETIC RETINAL EYE EXAM] Encounters Start End Encounter Admission Attending Care Care Encounter Source Date/Time Date/Time Type Type Clinicians Facility Department ID 2020-03-12 2020-03-12 [id number] [place] 00:00:00 00:00:00 MATEO [address] 2020-01-15 2020-01-15 Outpatient BRITTANI [facility] [id number] [place] 00:00:00 00:00:00 STEPHAN [address] 2019-12-15 2019-12-15 Outpatient ABRAHAM BANKS [facility] [id number] [place] 00:00:00 00:00:00 559 [facility] i 2019-12-10 2019-12-10 [facility] [id number] [place] 00:00:00 00:00:00 PETER [address] 2019-12-10 2019-12-10 Outpatient ABRAHAM BANKS [facility] [id number] [place] 00:00:00 00:00:[address] 2019-12-10 2019-12-10 Outpatient ABRAHAM BANKS [facility] [id number] [place] 00:00:00 00:00:[address] Results Test Description Test Time Test Comments Results Result Comments Source ECG 12 lead 2020-01-15 17:14:56 Test Item Value Reference Range Interpretation Comme nts Ventricular rate (test code = 253) 54 Atrial rate (test code = 255) 54 ME interval (test code = 266) 202 QRSD interval (test code = 260) 94 QT interval (test code = 264) 466 QTC interval (test code = 265) 441 P axis 1 (test code = 267) 47 QRS axis 1 (test code = 268) 50 T wave axis (test code = 270) 6 EKG impression (test code = 273) Sinus bradycardia-Otherwise normal ECG-In automated comparison with ECG of 16-JAN-2019 06:24,-No significant change was found- Nino Bhardwaj Fluoroscopy Guided Needle [id number] 12:34:03Hm Interface, Radiology Results 12/15/2019 12:37 PM CDTEXAMINATION: [place] FLUOROSCOPY GUIDED NEEDLE PLACEMENTCLINICAL HISTORY: M16.11 Unilateral primary osteoarthritis of the right hip COMPARISON: None.ANESTHESIA: Lidocaine local.TOTAL DOSE: 28.3 mGy ref air KermaFINDINGS: Patient was placed in supine position. Skin was sterilely prepped and draped. Lidocaine was infiltrated into the softtissues for local anesthesia.A 22-gauge needle was advanced into the right hip joint under fluoroscopy and 80 mg of DepoMedrol and 8 cc of 0.25% Bupivacaine were infused.Patient tolerated the procedurewell with no immediate complication and left the room in stable condition.ESTIMATED BLOOD LOSS: 0 cc. IMPRESSION: Technically successful fluoroscopic guided therapeutic right hip joint injection.Nino Jaramillo
[2020-03-27] MEDS ORDERED: LIDOCAINE 1% 20 ML MDV ONE (06:25)
--- NOTE | 2020-03-27 06:25 | ER ---
Nurse's Notes [facility] Name: Jamin Arreaga Age: 69 yrs Sex: Male : 1950 Arrival Date: 03/27/2020 Time: 06:04 Bed 6 Private MD: Diagnosis: Facial Laceration Presentation: 03/27 06:14 Chief complaint: Patient states: \T\ 0130 while he was sleeping he rolled over and fell mg2 from the bed and hit his chin on the nightstand. sustained approx. 2.5 inches long lac. Coronavirus screen: Client denies travel out of the [place] in the last 14 days. At this time, the client does not indicate any symptoms associated with coronavirus-19. Ebola Screen: No symptoms or risks identified at this time. Initial Sepsis Screen: Does the patient meet any 2 criteria? No. Patient's initial sepsis screen is negative. Does the patient have a suspected source of infection? No. Patient's initial sepsis screen is negative. Risk Assessment: Do you want to hurt yourself or someone else? Patient reports no desire to harm self or others. Onset of symptoms was March 27, 2020. 06:14 Method Of Arrival: Ambulatory mg2 06:14 Acuity: JORGE LUIS 4 mg2 Triage Assessment: 06:18 General: Appears in no apparent distress. comfortable, Behavior is calm, cooperative. mg2 Pain: Denies pain. EENT: No deficits noted. Neuro: Level of Consciousness is awake, alert, obeys commands, Oriented to person, place, time, situation. Cardiovascular: Capillary refill < 3 seconds Patient's skin is warm and dry. Respiratory: Airway is patent Respiratory effort is even, unlabored, Respiratory pattern is regular, symmetrical. GI: No signs and/or symptoms were reported involving the gastrointestinal system. : No signs and/or symptoms were reported regarding the genitourinary system. Derm: Wound noted chin Wound is fresh is approx. 2.5 inches long. Musculoskeletal: Circulation, motion, and sensation intact. Capillary refill < 3 seconds. Historical: - Allergies: 06:18 Lovenox; mg2 - Home Meds: 06:18 Aspirin Oral [Active]; Vitamin B-12 Oral [Active]; lisinopril 5 mg Oral tab 1 tab once mg2 daily [Active]; warfarin 5 mg Oral tab [Active]; tamsulosin 0.4 mg oral cp24 [Active]; - PMHx: 06:18 Hypertension; factor v deficiency; [place]; mg2 - PSHx: 06:18 Gastric Bypass; mg2 - Immunization history:: Flu vaccine status is unknown. - Social history:: Smoking status: unknown. Screenin:20 Abuse screen: Denies threats or abuse. Denies injuries from another. Nutritional mg2 screening: No deficits noted. Tuberculosis screening: No symptoms or risk factors identified. Fall Risk Fall in past 12 months (25 points). Assessment: 06:20 General: see triage assessment. mg2 06:25 Reassessment: PATIENT REFUSED TO HAVE CT SCAN OF THE HEAD. rv Vital Signs: 06:14 BP 131 / 84; Pulse 78; Resp 18; Temp 98.1; Pulse Ox 100% on R/A; Weight 80.74 kg; mg2 Height 5 ft. 7 in. (170.18 cm); Pain 0/10; 06:14 Body Mass Index 27.88 (80.74 kg, 170.18 cm) mg2 ED Course: 06:04 Patient arrived in ED. am2 06:07 Quincy Kerr PA is PHCP. [facility] 06:07 Jorge Luis Powers MD is Attending Physician. [facility] 06:13 Vikash Hernandez RN is Primary Nurse. mg2 06:16 Triage completed. mg2 06:20 Arm band placed on. mg2 06:20 Patient has correct armband on for positive identification. mg2 06:20 Patient did not have IV access during this emergency room visit. mg2 06:44 Assist provider with laceration repair on chin that was between 2.6 to 7.5 cm using mg2 sutures. Set up tray. Performed by Quincy GRAY Dressed with 4X4s, Patient tolerated well. 06:58 Wound care: 8 stitches made by the provider. mg2 Administered Medications: 06:43 Drug: Lidocaine-Epinephrine -1%: (1:100,000) 20 ml {Note: BY LETTY.} Volume: 20 ml; rv Route: Infiltration; 06:44 Follow up: Response: No adverse reaction mg2 Outcome: 06:25 Discharge ordered by . [facility] 06:59 Discharged to home ambulatory. mg2 06:59 Condition: stable 06:59 Discharge instructions given to patient, Instructed on discharge instructions, follow up and referral plans. medication usage, Demonstrated understanding of instructions, follow-up care, medications, Prescriptions given X 1. 06:59 Patient left the ED. mg2 Signatures: Quincy Kerr PA PA jmm Moreno, Amanda am2 Gardose, Michele, RN RN mg2 Rashad Taylor RN RN rv
--- NOTE | 2020-03-27 06:26 | EDPHYS ---
Physician Documentation [facility] Name: Jamin Arreaga Age: 69 yrs Sex: Male : 1950 Arrival Date: 03/27/2020 Time: 06:04 Bed 6 Private MD: ED Physician Jorge Luis Powers HPI: 03/27 06:17 This 69 yrs old Male presents to ER via Ambulatory with complaints of Fall jmm Injury, Laceration To Chin. 06:17 Details of fall: The patient fell from a supine position, out of bed. Onset: The jmm symptoms/episode began/occurred acutely, at 01:00. Associated injuries: The patient sustained injury to the head, laceration. This is a 69 year old male that presents to the ED with a laceration to the right side of his chin. Patient states while sleeping, he turned and hit the edge of the nightstand. Patient denies any vomiting, headache, dizziness, difficulty walking since the episode. Patient is UTD on tetanus immunizations. . Historical: - Allergies: 06:18 Lovenox; mg2 - Home Meds: 06:18 Aspirin Oral [Active]; Vitamin B-12 Oral [Active]; lisinopril 5 mg Oral tab 1 tab once mg2 daily [Active]; warfarin 5 mg Oral tab [Active]; tamsulosin 0.4 mg oral cp24 [Active]; - PMHx: 06:18 Hypertension; factor v deficiency; [place]; mg2 - PSHx: 06:18 Gastric Bypass; mg2 - Immunization history:: Flu vaccine status is unknown. - Social history:: Smoking status: unknown. ROS: 06:17 Constitutional: Negative for fever, chills, and weight loss, Cardiovascular: Negative jmm for chest pain, palpitations, and edema, Respiratory: Negative for shortness of breath, cough, wheezing, and pleuritic chest pain. 06:17 Skin: Positive for laceration(s). 06:17 Neuro: Negative for headache, loss of consciousness. 06:17 All other systems are negative. Exam: 06:17 Constitutional: This is a well developed, well nourished patient who is awake, alert, jmm and in no acute distress. 06:17 Eyes: EOMI, no conjunctival erythema appreciated ENT: Moist Mucus Membranes Neck: Trachea midline, Supple Chest/axilla: Normal chest wall appearance and motion. Cardiovascular: Regular rate and rhythm. No edema appreciated Respiratory: Normal respirations, no respiratory distress appreciated Abdomen/GI: Non distended, soft Back: Normal ROM 06:17 Head/face: 3 cm laceration noted to the chin. 06:17 Skin: 3 cm laceration noted to the chin. 06:17 Neuro: Orientation: is normal, Mentation: is normal, Memory: is normal. 06:17 Psych: Behavior/mood is pleasant, cooperative. Vital Signs: 06:14 BP 131 / 84; Pulse 78; Resp 18; Temp 98.1; Pulse Ox 100% on R/A; Weight 80.74 kg; mg2 Height 5 ft. 7 in. (170.18 cm); Pain 0/10; 06:14 Body Mass Index 27.88 (80.74 kg, 170.18 cm) mg2 Laceration: 06:23 Wound Repair of 3cm ( 1.2in ) subcutaneous laceration to chin. Distal jmm neuro/vascular/tendon intact. Anesthesia: Local anesthetic administered with 2 mls of 1% lidocaine w/ Epi. Wound prep: Simple cleansing with betadine by me. Skin closed with 8 5-0 Prolene using simple sutures and sterile technique. Patient tolerated well. MDM: 06:14 Patient medically screened. [facility] 06:23 Data reviewed: vital signs, nurses notes. Counseling: I had a detailed discussion with addison the patient and/or guardian regarding: the historical points, exam findings, and any diagnostic results supporting the discharge/admit diagnosis, the need for outpatient follow up, to return to the emergency department if symptoms worsen or persist or if there are any questions or concerns that arise at home. Refusal of service: The patient/guardian displays adequate decision making capability and despite a detailed discussion of alternatives, benefits, risks, and consequences refuses: CT Scan. ED course: Patient given head injury and wound infection return precautions. Patient understood and agrees with the plan of care. . 03/27 06:43 Order name: Dressing - Wound; Complete Time: 06:43 rv 03/27 06:43 Order name: Gloves, Sterile; Complete Time: 06:43 rv 03/27 06:43 Order name: Setup Suture Tray; Complete Time: 06:43 rv Administered Medications: 06:43 Drug: Lidocaine-Epinephrine -1%: (1:100,000) 20 ml {Note: BY LETTY.} Volume: 20 ml; rv Route: Infiltration; 06:44 Follow up: Response: No adverse reaction mg2 Disposition: 03/28 05:01 Co-signature as Attending Physician, Jorge Luis Powers MD. [email or web address] Disposition: 03/27/20 06:25 Discharged to Home. Impression: Facial Laceration. - Condition is Stable. - Discharge Instructions: Facial Laceration. - Prescriptions for Cephalexin 500 mg Oral Capsule - take 1 capsule by ORAL route every 6 hours for 10 days; 40 capsule. - Medication Reconciliation Form, Thank You Letter, Antibiotic Education, Prescription Opioid Use form. - Follow up: Private Physician; When: 1 week; Reason: Recheck today's complaints, Continuance of care, Staple/Suture removal, Re-evaluation by your physician. Signatures: Quincy Kerr PA PA Vikash Monson RN RN mg2 Rashad Taylor RN RN rv Holmes, Maurice, MD MD [email or web address] Corrections: (The following items were deleted from the chart) 03/27 06:52 06:23 Wound Repair of 3cm ( 1.2in ) subcutaneous laceration to chin. Distal m neuro/vascular/tendon intact. Anesthesia: Local anesthetic administered with 2 mls of 1% lidocaine w/ Epi. Wound prep: Simple cleansing with betadine by nh. Skin closed with 6 5-0 Prolene using simple sutures and sterile technique. Patient tolerated well. [facility] 06:59 06:25 03/27/2020 06:25 Discharged to Home. Impression: Facial Laceration. Condition is mg2 Stable. Forms are Medication Reconciliation Form, Thank You Letter, Antibiotic Education, Prescription Opioid Use. Follow up: Private Physician; When: 1 week; Reason: Recheck today's complaints, Continuance of care, Staple/Suture removal, Re-evaluation by your physician. [facility]
[2020-03-27] MEDS ORDERED: LIDOCAINE 1% W/EPI 1:100,000 MDV 20 ML VIAL ONE (06:30)
[2020-03-27 07:09] VITALS: BP 131/84; TEMP 98.1; O2SAT 100
== END 2020-03-27 06:59 | disposition home or self-care (01) ==
LOC: ER 06:01
PROC: 0JQ10ZZ Repair Face Subcutaneous Tissue and Fascia, Open Approach (ICD-10-PCS; principal; 2020-03-27)
DX: S01.81XA Laceration without foreign body of other part of head, initial encounter (principal); W06.XXXA Fall from bed, initial encounter; Y93.89 Activity, other specified; Y92.9 Unspecified place or not applicable; Z79.01 Long term (current) use of anticoagulants; Z79.82 Long term (current) use of aspirin; Z88.8 Allergy status to other drugs, medicaments and biological substances; Z98.84 Bariatric surgery status; I10 Essential (primary) hypertension; D68.2 Hereditary deficiency of other clotting factors; I25.2 Old myocardial infarction
CPT/HCPCS: 99284